=== PATIENT | female | born 1975 | race Caucasian/White ===

== ENCOUNTER 2016-07-12 17:26 | Inpatient (IN) | payer BC, OTHER ==
[2016-07-12] MEDS ORDERED: oxyCODONE/Acetamin 5/325 MG* TAB PO PRN (20:34)
[2016-07-12] MEDS ORDERED: Glycerin ADULT SUPP PR PRN (20:34)
[2016-07-12] MEDS ORDERED: Dibucaine 1% 28.35 GM TUBE PR PRN (20:34)
[2016-07-12] MEDS ORDERED: Witch Hazel PAD* JAR TOPICAL PRN (20:34)
[2016-07-12] MEDS ORDERED: Acetaminophen TAB* 325 MG PO PRN (20:34)
[2016-07-12] MEDS ORDERED: Simethicone CHEW TAB* 80 MG PO SCH (21:00)
[2016-07-12] MEDS: Docusate CAP* 100 MG PO SCH (21:54)
[2016-07-12] MEDS: Ibuprofen TAB* 600 MG PO PRN (21:54)
[2016-07-13 08:11] LABS: Hematocrit 38 % (35-47); Hemoglobin 12.6 g/dl (12.0-16.0); Mean Corpuscular HGB Conc 33 g/dl (31-36); Mean Corpuscular Hemoglobin 28 pg (27-31); Mean Corpuscular Volume 85 fL (80-97); Mean Platelet Volume 10 um3 (7.4-10.4); Red Blood Count 4.54 10^6/ul (4.0-5.4); Red Cell Distribution Width 14 % (10.5-15); White Blood Count 13.5 10^3/ul (3.5-10.8)
[2016-07-13] MEDS ORDERED: Ferrous Gluconate TAB* 324 MG TAB PO SCH (09:00)
[2016-07-13] MEDS: Docusate CAP* 100 MG PO SCH ×2 (09:37→14:30)
[2016-07-13] MEDS: Ibuprofen TAB* 600 MG PO PRN (11:50)
[2016-07-13 21:50] VITALS: BP 126/78
== END 2016-07-13 21:00 | disposition home or self-care (01) | DRG 560 ==
LOC: MCHOBOUT 17:26 → MCHOB 17:52
PROVIDERS: ADMIT Midwife; ATTEND Midwife
PROC: 10E0XZZ Delivery of Products of Conception, External Approach (ICD-10-PCS; principal; 2016-07-12)
PROC: 0KQM0ZZ Repair Perineum Muscle, Open Approach (ICD-10-PCS; 2016-07-12)
DX: O77.0 Labor and delivery complicated by meconium in amniotic fluid (principal); O99.344 Other mental disorders complicating childbirth; F32.9 Major depressive disorder, single episode, unspecified; O69.9XX0 Labor and delivery complicated by cord complication, unspecified, not applicable or unspecified; O70.1 Second degree perineal laceration during delivery; Z3A.40 40 weeks gestation of pregnancy; Z37.0 Single live birth
CPT/HCPCS: 36415; 85025; A9270-GY